=== PATIENT | male | born 2005 | race Caucasian/White ===

== ENCOUNTER 2024-04-02 17:19 | Emergency (ER) | payer OTHER, SELFPAY ==
[2024-04-02 17:31] VITALS: BP 135/73; PULSE 82; RESP 16; TEMP 36.2; O2SAT 100
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
== END 2024-04-02 18:12 | disposition short-term general hospital (02) ==
PROVIDERS: Emergency Provider Registered Nurse
DX: S71.112A Laceration without foreign body, left thigh, initial encounter (principal); F17.290 Nicotine dependence, other tobacco product, uncomplicated; W45.8XXA Other foreign body or object entering through skin, initial encounter
CPT/HCPCS: 99212; G0463